=== PATIENT | male | born 1970 | race Caucasian/White ===

== ENCOUNTER 2019-08-19 08:23 | Emergency (ER) | payer OTHER ==
--- NOTE | 2019-08-19 08:46 | ERPHSYRPT ---
- History of Present Illness Time Seen by Provider: 08/19/19 08:31 Source: patient Exam Limitations: no limitations Patient Subjective Stated Complaint: Right sided rib pain Triage Nursing Assessment: Patient ambulated back to ED and transferred self to bed. Patient A+O x3. Patient's skin pink, warm and dry. Patient complains of right sided rib pain after falling last Thursday. Patient states he was feeling better ntil he lifted an object causing more pain to right side of ribs. Patient states pain is intermittent sharp when moving. Patient also has a small bulge noted to right side of ribs. Lungs clear a/p glenis. Physician History: Location: right rib pain Quality: sharp Radiation: none Severity: moderate Duration: 1 week Timing: after injury Modifying factors/associated signs and symptoms: Patient has had right rib pain for 1 week. Patient states he had a fall. No other injuries. He is not on a blood thinner. States initially improved. However he was lifting something 3 days ago. [place] like this exacerbated his pain. Allergies/Adverse Reactions: No Known Drug Allergies Allergy (Unverified 08/19/19 08:27) Home Medications: No Reportable Medications [No Reported Medications] 08/19/19 [History] Hx Influenza Vaccination/Date Given: No Hx Pneumococcal Vaccination/Date Given: No Immunizations Up to Date: Yes Travel Risk - International Travel Have you traveled outside of the country in past 3 weeks: No - Coronavirus Screening Are you exhibiting any of the following symptoms?: No Close contact with a COVID-19 positive Pt in past 14-21 Days: No - Review of Systems Constitutional: No Fever, No Chills Eyes: No Symptoms Ears, Nose, & Throat: No Symptoms Respiratory: No Cough, No Dyspnea Cardiac: No Chest Pain, No Edema, No Syncope Abdominal/Gastrointestinal: No Abdominal Pain, No Nausea, No Vomiting, No Diarrhea Genitourinary Symptoms: No Dysuria Musculoskeletal: Other (right rib pain ), No Back Pain, No Neck Pain Skin: No Rash Neurological: No Dizziness, No Focal Weakness, No Sensory Changes Psychological: No Symptoms Endocrine: No Symptoms All Other Systems: Reviewed and Negative - Past Medical History Pertinent Past Medical History: No Neurological History: No Pertinent History ENT History: No Pertinent History Cardiac History: No Pertinent History Respiratory History: No Pertinent History Endocrine Medical History: No Pertinent History Musculoskeletal History: No Pertinent History GI Medical History: No Pertinent History History: No Pertinent History Psycho-Social History: No Pertinent History Male Reproductive Disorders: No Pertinent History - Past Surgical History Past Surgical History: Yes Neuro Surgical History: No Pertinent History Musculoskeletal: Orthopedic Surgery Other Surgical History: Right ankle surgery - Social History Smoking Status: Never smoker Drug Use: none Patient Lives Alone: No - Nursing Vital Signs Nursing Vital Signs: Initial Vital Signs Temperature 97.9 F 08/19/19 08:30 Pulse Rate 100 H 08/19/19 08:30 Respiratory Rate 18 08/19/19 08:30 Blood Pressure 142/100 08/19/19 08:30 O2 Sat by Pulse Oximetry 100 08/19/19 08:30 Pain Scale Pain Intensity 4 - Physical Exam General Appearance: no apparent distress, alert Eye Exam: PERRL/EOMI, eyes nml inspection Ears, Nose, Throat Exam: normal ENT inspection, TMs normal, pharynx normal, moist mucous membranes Neck Exam: normal inspection, non-tender, supple, full range of motion Respiratory Exam: normal breath sounds, lungs clear, No respiratory distress Cardiovascular Exam: regular rate/rhythm, normal heart sounds, normal peripheral pulses Gastrointestinal/Abdomen Exam: soft, normal bowel sounds, No tenderness, No mass Back Exam: normal inspection, normal range of motion, No CVA tenderness, No vertebral tenderness Extremity Exam: normal inspection, normal range of motion, pelvis stable Neurologic Exam: alert, oriented x 3, cooperative, normal mood/affect, nml cerebellar function, nml station & gait, sensation nml, No motor deficits Skin Exam: normal color, warm, dry, No rash Lymphatic Exam: No adenopathy SpO2 Interpretation: normal SpO2: 100 Comments: 08/19/19 08:45 right rib tenderness to palpation. No obvious deformity, sensation intact, 2+ capillary refill, 2 point tactile discrimination intact. 5 out of 5 strength. Full range of motion without pain. Compartments are soft, nontender. Overlying skin shows no tenting, bruising, ecchymosis. - Radiology Exams Ribs X-ray Interpretation: Interpreted by me (right rib fractures - my read ) Ordered Tests: Active Orders 24 hr Category Date Time Status CHEST 2 VIEWS (PA AND LAT) Stat Exams 08/19/19 09:37 Taken RIBS BILATERAL INCLUDE PA CXR Stat Exams 08/19/19 09:37 Completed Medication Summary Discontinued Medications Generic Name Dose Route Start Last Admin Trade Name Freq PRN Reason Stop Dose Admin Ibuprofen 800 mg 08/19/19 08:59 08/19/19 09:01 Motrin 400 Mg PO 08/19/19 09:00 400 mg STAT ONE Administration Ibuprofen Confirm 08/19/19 09:00 Motrin 400 Mg Administered 08/19/19 09:01 Dose 800 mg .ROUTE .STK-MED ONE Ketorolac Tromethamine 30 mg 08/19/19 08:46 08/19/19 08:59 Toradol 30 Mg Injection IM 08/19/19 08:47 Not Given STAT ONE Ketorolac Tromethamine Confirm 08/19/19 08:54 Toradol 30 Mg Injection Administered 08/19/19 08:55 Dose 30 mg .ROUTE .STK-MED ONE - Progress Progress: improved Progress Note: 08/19/19 08:45 Will obtain x-rays of the right ribs. Also obtain a chest x-ray. Look for any pneumothorax or other issues. 08/19/19 10:00 Patient found to have a right rib fracture. He has rib fractures eighth ninth and 10th ribs. No displacement, no pneumothorax my read. At this point time will discharge patient home. Close follow-up with PCP. Return here for new or changing symptoms. Counseled pt/family regarding: diagnosis, need for follow-up, rad results - Departure Departure Disposition: Home Clinical Impression: Ribs, multiple fractures Condition: Stable Critical Care Time: No Referrals: CHING LORD NP [NON-STAFF PHY W/O PRIVILEGES] - Instructions: Rib Fracture (DC)
[2019-08-19] MEDS ORDERED: TORAdol 30 mg Injection ONE (08:54)
[2019-08-19] MEDS: TORAdol 30 mg Injection IM ONE ×2 (08:55→08:59)
[2019-08-19] MEDS ORDERED: MOTRIN 400 MG PO ONE (08:59)
[2019-08-19] MEDS ORDERED: MOTRIN 400 MG ONE (09:00)
--- NOTE | 2019-08-19 09:52 | XRAY ---
Exam: Bilateral rib films from 08/19/2019. Comparison: Two-view chest series from same date. Indication: 49-year-old male fell one week ago, complains of lower right rib pain. Findings: 2 AP images and both oblique images were obtained of each rib cage. I again acute/subacute fractures of the lateral aspect of the right eighth and ninth ribs with only slight displacement.. In addition, there is a nondisplaced fracture of the posterior lateral aspect of the right 10th rib. No other acute rib fracture is seen on the right. I do see 3.2 cm x 3.6 cm calcific fragment overlying the right upper quadrant. This has the appearance of a distal rib. It might be due to a remote fracture injury arising from the distal anterior aspect of the right seventh rib. Correlate clinically. There is a mild rotary dextroscoliosis centered at L2-L3. Moderate degenerative disc disease at L1-L2 and mild to moderate degenerative disc disease at L2-L3 are seen. There also appears to be mild degenerative change along the left margin of L3-L4. The left rib cage reveals no acute fracture line or displaced fracture. A calcified granuloma is seen within the peripheral lower lung field. No pneumothorax or pleural fluid is seen on the left. Impression: 1. There appear to be recent acute or subacute fracture injuries of the lateral right eighth and ninth ribs and the posterior lateral right 10th rib. No significant displacement is seen. 2. In addition, there is an unusual calcium fragment overlying the right upper quadrant which has the appearance of the distal lower rib, perhaps arising off the anterior margin of the right seventh rib. This could be due to a remote displaced rib fracture injury. Correlate clinically. 3. No acute left rib fracture is seen. 4. Mild rotary dextroscoliosis centered at L2-L3 and some degenerative disc disease within the upper 3 lumbar interspace levels are seen.
[2019-08-19 10:04] VITALS: BP 138/87; PULSE 75; O2SAT 97
--- NOTE | 2019-08-23 09:04 | XRAY ---
Exam: Two-view chest from 08/19/2019. Comparison: One view chest from 05/02/2015. Indication: 49-year-old male fell one week ago, lower right rib pain. Findings: 2 PA images and a lateral image of the chest were obtained. The left lateral sulcus contrast. As been cut off from the PA images. The lungs are hyperinflated. There is again noted to be mild biapical pleural thickening/scarring. The transverse heart size is normal. The rigoberto and mediastinal structures appear unremarkable. There appears be a small calcified granuloma within the left lower lung field and the posterior lung sulcus. No air space infiltrates, vascular congestion, pneumothorax, or pleural fluid is seen. Slight convexity of the mid thoracic spine toward the right is seen. There is a suggestion of minimally displaced fractures of the lateral aspect of the right eighth and ninth ribs. Impression: 1. Hyperinflated chest revealing no acute cardiopulmonary disease. This appears similar to 05/02/2015. 2. Minimally displaced acute or subacute fractures of the lateral aspect of the right eighth and ninth ribs.
== END 2019-08-19 10:01 | disposition home or self-care (01) ==
LOC: ED 08:23
DX: S22.49XA Multiple fractures of ribs, unspecified side, initial encounter for closed fracture (principal); R07.81 Pleurodynia; X50.0XXA Overexertion from strenuous movement or load, initial encounter; X50.9XXA Other and unspecified overexertion or strenuous movements or postures, initial encounter; Y93.89 Activity, other specified; Y92.89 Other specified places as the place of occurrence of the external cause
CPT/HCPCS: 71046; 71111; 99284; J1885; A9270-GY